=== PATIENT | male | born 1965 | race Caucasian/White ===

== ENCOUNTER 2017-01-22 11:12 | Inpatient (IN) ==
--- NOTE | 2017-01-21 21:30 | Discharge Summary ---
<ShamarobertaMarnie - Last Filed: 01/21/17 21:28> Date of Encounter: 01/21/17 - Discharge Diagnosis (1) Arthritis of knee, left Priority: Primary Status: Acute (2) COPD (chronic obstructive pulmonary disease) Priority: Secondary Status: Chronic Qualifiers: COPD type: unspecified COPD Qualified Code(s): J44.9 - Chronic obstructive pulmonary disease, unspecified (3) YESI (obstructive sleep apnea) Priority: Secondary Status: Chronic (4) DMII (diabetes mellitus, type 2) Priority: Secondary Status: Chronic Qualifiers: Diabetes mellitus complication status: with unspecified complications Diabetes mellitus exterminator helper insulin use: unspecified long-term insulin use status Qualified Code(s): E11.8 - Type 2 diabetes mellitus with unspecified complications (5) Obesity Priority: Secondary Status: Chronic Qualifiers: Obesity type: unspecified obesity type Obesity severity: morbid Qualified Code(s): E66.01 - Morbid (severe) obesity due to excess calories - Discharge Medications Prescriptions: OxyCODONE Immed Rel [Roxicodone 5 MG] 5 - 10 mg PO Q6HR PRN #40 tablet PRN Reason: Pain Home Medications: Losartan/Hydrochlorothiazide [Hyzaar 50-12.5 Tablet] 1 each PO DAILY 08/02/15 [ History] Pravastatin Sodium [Pravachol] 20 mg PO DAILY 08/02/15 [History] OxyCODONE Immed Rel [Roxicodone 5 MG] 5 - 10 mg PO Q6HR PRN #40 tablet 01/21/17 [Rx] Albuterol Sulfate [Ventolin Hfa] 2 puff IH Q4H PRN 01/22/17 [History] Ammonium Lactate [Lac-Hydrin Five] 1 appl TP BID PRN 01/22/17 [History] Aspirin [Lo-Dose Aspirin EC] 81 mg PO DAILY 01/22/17 [History] Budesonide/Formoterol 160/4.5 [Symbicort 160/4.5] 2 puff IH BID 01/22/17 [ History] Metformin HCl [Metformin HCl ER] 500 mg PO BID 01/22/17 [History] Testosterone Cypionate [Depo-Testosterone] 200 mg IM Q14D 01/22/17 [History] Allergies/Adverse Reactions: Allergies morphine Adverse Reaction (Verified 01/22/17 13:44) Hallucinating Primary care physician: Nikky Melgoza - Patient Status Disposition: Home, Self-Care Condition: Good - Discharge Instructions Follow Up With: Gary Ball MD [Primary Care Provider] - - Hospital Course Hospital course: Mr. Fischer is a 51 year old male - Time Spent with Patient Total time spent providing and/or coordinating discharge services: <KovacsLars - Last Filed: 01/23/17 06:37> Date of Encounter: 01/23/17 Time of Encounter: 06:36 - Discharge Diagnosis (1) Arthritis of knee, left Priority: Primary Status: Acute (2) COPD (chronic obstructive pulmonary disease) Priority: Secondary Status: Chronic Qualifiers: COPD type: unspecified COPD Qualified Code(s): J44.9 - Chronic obstructive pulmonary disease, unspecified (3) YESI (obstructive sleep apnea) Priority: Secondary Status: Chronic (4) DMII (diabetes mellitus, type 2) Priority: Secondary Status: Chronic Qualifiers: Diabetes mellitus complication status: with unspecified complications Diabetes mellitus long-term insulin use: unspecified long-term insulin use status Qualified Code(s): E11.8 - Type 2 diabetes mellitus with unspecified complications (5) Obesity Priority: Secondary Status: Chronic Qualifiers: Obesity type: unspecified obesity type Obesity severity: morbid Qualified Code(s): E66.01 - Morbid (severe) obesity due to excess calories Labs on day of discharge: Labs from last 24 hours 01/22/17 11:29 POC Glucose 113 H Primary care physician: Nikky Melgoza - Patient Status Functional capacity at discharge: uses cane/walker Overall status at discharge: patient is progressing back to baseline - Hospital Course Hospital course: Mr. Fischer is a 51 year old male The patient had an uneventful postoperative course. They received antibiotics and physical therapy and were discharged in stable condition. There will follow -up in the office in 2 weeks. Aspirin DVT prophylaxis - Time Spent with Patient Total time spent providing and/or coordinating discharge services:
--- NOTE | 2017-01-22 11:32 | History & Physical Report ---
Date of Encounter: 01/22/17 Time of Encounter: 11:31 24 Hour HP Update - Instructions Instructions: If the History and Physical is less than 30 days old and was completed prior to A.M. admission and or procedure and has NOT been updated on calendar day of procedure please complete this update prior to performing procedure. - Update Patient reports changes in Medical Condition: No Changes in examination, assessment, or condition: No Changes in Medication: No Preop tests/diagnostics Reviewed: Yes Surgery Remains Indicated: Yes Consent for Planned Operative Procedure(s) Verified: Yes - Pre-Operative Checklist Preoperative Checklist Indicated: No Prophylactic Antibiotic Ordered: Yes Is VTE Prophylaxis Indicated?: Yes
[2017-01-22] MEDS ORDERED: Albuterol 2.5 MG/3 ML NEBULIZER IH ONE (11:51)
[2017-01-22] MEDS ORDERED: CeFAZolin Pre 3,000 MG/100 ML 3,000 MG/100 ML BAG IVPB ONE (11:51)
[2017-01-22] MEDS ORDERED: Ringers Solution, Lactated 1,000 ML IVC SCH ×2 (12:00→21:05)
--- NOTE | 2017-01-22 12:30 | Anesthesia Evaluation PreOp ---
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: Other (legally blind right eye (sees shadows)) Other Medical History: Diabetes Type II, Other (obesity BMI=41.4, RA) Anesthesia History: Past Anesthesia, Problems (PONV) Alcohol Use: rarely Drug use: none Medications and Allergies Alfuzosin HCl [Uroxatral] 10 mg PO DAILY 08/02/15 [History] Losartan/Hydrochlorothiazide [Hyzaar 50-12.5 Tablet] 1 each PO DAILY 08/02/15 [ History] Meloxicam [Mobic] 7.5 mg PO DAILY 08/02/15 [History] Metformin HCl [Glucophage] 2,000 mg PO DAILY 08/02/15 [History] Pravastatin Sodium [Pravachol] 20 mg PO DAILY 08/02/15 [History] Aspirin Enteric Coated [Aspirin EC] 325 mg PO DAILY #21 tablet. 01/21/17 [Rx] OxyCODONE Immed Rel [Roxicodone 5 MG] 5 - 10 mg PO Q6HR PRN #40 tablet 01/21/17 [Rx] Allergies morphine Adverse Reaction (Unverified 07/28/15 14:51) Hallucinating - Meds/Allergy Pre-op Review Medications Reviewed: Yes Allergies Reviewed: Yes Beta Blockers on Current Med List: No Anesthesia Results - Labs Laboratory Tests 01/09/17 01/09/17 01/09/17 13:23 13:23 13:23 WBC 8.5 Hgb 16.4 Hct 48.9 Plt Count 200 PT 10.7 INR 1.0 APTT 30.5 Sodium 140 Potassium 4.2 BUN 15 Creatinine 0.74 - Imaging EKG: report reviewed (11/15/2016 SR, moderate IV conduction delay) Additional studies: 04/29/2013 Stress Echo Resting Echocardiogram Impressions: * LVEF 60% * Normal left ventricular size and systolic function. Treadmill Stress Echocardiogram Impressions: * Appropriate increase in LVEF with stress. * No segmental wall motion changes that would suggest ischemia. * Exercise ECG was negative for ischemia. * The exercise capacity was poor (3 minutes). * Patient had no chest pain with stress. * Normal hemodynamic response to stress. * No arrhythmias noted with stress. Anesthesia Exam O2 Sat Height 1.83 m Height 1.83 m Height 1.83 m Weight 138.346 kg Weight 138.346 kg Weight 138.346 kg O2 Sat by Pulse Oximetry 95 Vital Signs Temp Pulse Resp BP Pulse Ox 97.9 F 69 18 155/100 95 01/22/17 11:33 01/22/17 11:33 01/22/17 11:33 01/22/17 11:33 01/22/17 11:33 Blood Glucose* 113 Height: 6' Weight: 305 lbs NPO (# of Hours): 8 Pain Scale: 0 Pain Scale Used: Numeric (1 - 10) - HEENT Pupil (Motor): EOMI Mallampati: III Teeth: Normal (chipped upper front tooth) Oral Opening: Greater than 3 - TRIM DIE MAKER LOC: Oriented TRIM DIE MAKER Motor: Normal RUE, Normal LUE, Normal RLE, Normal LLE, Normal Face TRIM DIE MAKER Sensory: Normal: RUE, LUE, RLE, LLE, Face - Cardiac Rhythm: Regular Murmur: None - Pulmonary Breath Sounds: bilateral Clear Respiratory Effort: Symmetrical Anesthesia Assess/Plan ASA Score: 3 Modified Sol Scale for Level of Consciousness: Cooperative, oriented, and tranquil Anesthetic Plan: General, Regional Monitoring Plan: Standard Monitors Recovery Plan: PACU
[2017-01-22] MEDS ORDERED: Ketorolac 30 MG/ML VIAL ONE (15:25)
[2017-01-22] MEDS ORDERED: Lidocaine -MPF 2% 2 ML VIAL ONE (15:25)
[2017-01-22] MEDS ORDERED: *HR* Midazolam HCl 2 MG/2 ML VIAL ONE ×2 (15:25→15:29)
[2017-01-22] MEDS ORDERED: *HR* Propofol 200 MG/20 ML VIAL IVP ONE (15:25)
[2017-01-22] MEDS ORDERED: Ondansetron 4 MG/2 ML VIAL ONE (15:25)
[2017-01-22] MEDS ORDERED: *HR* FentaNYL (PF) 100 MCG/2 ML VIAL ONE ×2 (15:25→15:29)
[2017-01-22] MEDS ORDERED: ROPIVACAINE HCL/PF 0.5% 30 ML VIAL ONE (16:28)
--- NOTE | 2017-01-22 17:23 | Anesthesia Procedures ---
Date of Encounter: 01/22/17 Time of Encounter: 16:40 Procedures: Anesthesia - Nerve Block Procedure Date: 01/22/17 Time: 16:40 Allergies/Adv Reactions: morphine Pre-op Diagnosis: Left Knee Arthritis Surgical Procedure: Left Total Knee Arthroplasty Checklist: Correct Patient Identifier, Correct procedure, History checked Correct side: Left (ft) Blood Thinner: No Monitor Applied: EKG, BP, Pulse Oximetry Supplemental Oxygen via Nasal Cannula (L/min): 2 Sedation: Versed (mg): 2 Sedation: Fentanyl (mcg): 100 Indication: Post Op Analgesia Pre-op Neuro Deficits: No Block Type: Femoral Catheter placed: No Sterile Technique: Yes Ultrasound used: Yes Anatomy identified: Yes Visual spread of Local: Yes Neuro Stimulation: Yes Nerve Stimulator Range: >0.4 - 0.6 mA Blood on Needle Aspiration: No Smooth Injection of Local: Yes Pain with Injection of Local: No Prep: Chlorhexadine Needle: 22 x 50 mm Stimuplex Local: Ropivacaine (0.5% 30 ml ) Volume (cc): 30 Number of Attempts: 1 Complications: None/effective block Vitals: vss
[2017-01-22] MEDS ORDERED: Albuterol 2.5 MG/3 ML NEBULIZER IH PRN (17:27)
[2017-01-22] MEDS ORDERED: *HR* Promethazine 25 MG/ML VIAL IVP PRN (17:27)
[2017-01-22] MEDS ORDERED: Propofol 500 MG/50 ML INFUS..BTL ONE (17:31)
[2017-01-22] MEDS ORDERED: Dexamethasone 4 MG/ML VIAL ONE (17:52)
--- NOTE | 2017-01-22 17:58 | Orthopedic Operative Note ---
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 Operative procedure: The patient was brought to the operating room and placed on the operating room table. After general anesthesia was administered the operative knee was examined. Findings were noted in the exam under anesthesia. The operative extremity was prepped and draped in sterile surgical fashion. The patient received IV antibiotics prior to skin incision. A standard midline incision was made centered over the patella. The incision was made through the skin and subcutaneous tissue. A medial parapatellar tendon approach was performed. Care was taken to preserve tissue along the medial aspect of the patella. And to protect the patella tendon. The deep MCL was released off the medial tibia. The infra patella fat pad was excised. Knee was brought into flexion. Patient noted to have grade 43 changes medial compartment and patellofemoral joint. The entry hole was made for the intramedullary femoral guide. The guide was seated in 6 degrees of valgus. Anterior cut was made followed by the distal cut. The PCL the medial and the lateral menisci were excised. The Altamirano cyst was palpated and a hemostat was used to open up the aperture and evacuate the cyst. The tibia was subluxed forward. The entry hole was made for the intramedullary tibial guide. Guide was seated to resect 2 mm off the more abnormal side. The knee was brought into flexion the distal femur was sized to a 2 a 70 The femur was first reamed to a a 22 x 120 The femoral guide was seated, the anterior cut was made followed by the posterior condylar cut, followed by the chamfer cuts. The finishing guide was seated the box cut was made. Trial had good fit and fixation The tibia was sized to a an 79 The tibia was first reamed 18 x 80 Trial reduction revealed full extension no varus valgus instability with the appropriate or teen insert. The patella was everted and cut was made at the level of the insertion of the quadriceps and patella tendon. The patella was sized to a 40 the guide was seated and the lug holes are drilled. Trial reduction revealed excellent patella tracking. All trial components were removed all bony surfaces were irrigated. Components were assembled on the back table. The femur was cemented first followed by the tibia. The 14 Melissa was seated and secured. The knee was brought into full extension. The patella was cemented and held in place with the patellar holding clamp. After the cement had hardened, the knee sat for 2 minutes with a Betadine saline solution. The knee was then irrigated out with 2 L of pulse irrigation. The extensor mechanism was closed with #2 FiberWire suture and #2 PDS suture. The subcutaneous tissue was then irrigated and closed deep with #1 PDS suture superficially with 0 PDS suture and skin was closed with skin lonnie The patient was then placed in a sterile dressing and a postoperative brace extubated and transferred to recovery room in stable condition. Anesthesia: LESLEY Surgeon: Lars Kovacs Dbas: Marnie Esqueda Condition: stable Disposition: PACU
[2017-01-22] MEDS ORDERED: *HR* Enoxaparin 30 MG/0.3 ML SYRINGE SQ SCH (18:00)
[2017-01-22] MEDS: *HR* HYDROmorphone (PF) 1 MG/ML SYRINGE IVP PRN ×2 (18:35→18:50)
--- NOTE | 2017-01-22 19:15 | Anesthesia Evaluation Post Op ---
Date of Encounter: 01/22/17 Time of Encounter: 19:20 - Vital Signs Vital Signs: Vital Signs/O2 Sat/Glucose, Most Current Temp Pulse Resp BP Pulse Ox 01/22/17 19:05 80 16 138/87 96 01/22/17 18:55 97.3 F L 86 16 151/90 98 01/22/17 18:45 82 16 147/95 97 01/22/17 18:35 80 16 147/95 95 01/22/17 18:25 97.8 F 76 20 125/80 95 01/22/17 16:14 66 16 158/89 98 - Lungs Lungs: Clear Ascult./Percussion - Cardiovascular Regular Rate - Mental Status Mental Status: Alert & Oriented, Answers Appropriately - Pain Pain Scale: 2 - Nausea Vomiting Nausea Vomiting: Not Present - Hydration Hydration: Ice chips - Discharge PostOp Status: Transfer Patient to floor
[2017-01-22 20:07] LABS: Hemoglobin 16.2 g/dL (12.9-16.9)
[2017-01-22] MEDS ORDERED: *HR* HYDROmorphone (PF) 1 MG/ML SYRINGE IVP PRN (21:05)
[2017-01-22] MEDS ORDERED: ceFAZolin 3,000 MG in D5% in Water 100 ML IVPB SCH (21:05)
[2017-01-22] MEDS ORDERED: *HR* OxyCODONE Immed Rel 5 MG TABLET PO PRN (21:05)
[2017-01-22] MEDS ORDERED: Ammonium Lactate 30 APPL/225 GM BOTTLE TP PRN (21:05)
[2017-01-22] MEDS ORDERED: Temazepam 15 MG CAPSULE PO PRN (21:05)
[2017-01-22] MEDS ORDERED: Insulin LISPRO 300 UNITS/3 ML VIAL SQ SCH ×2 (21:05)
[2017-01-22] MEDS ORDERED: Ondansetron 4 MG/2 ML VIAL IVP PRN (21:05)
[2017-01-22] MEDS ORDERED: D5% in Water 1,000 ML IVC PRN (21:05)
[2017-01-22] MEDS ORDERED: Sennosides 8.6 MG TABLET PO PRN (21:05)
[2017-01-22] MEDS ORDERED: MOM Conc 10 ML UD.LIQ PO PRN (21:05)
[2017-01-22] MEDS ORDERED: Naloxone 0.4 MG/ML INJ IVP PRN (21:05)
[2017-01-22] MEDS ORDERED: Dextrose Gel 15 GM PO PRN ×2 (21:05)
[2017-01-22] MEDS ORDERED: *HR* Dextrose 50 % in Water (Syg) 50 ML SYRINGE IVP PRN (21:05)
[2017-01-22] MEDS ORDERED: DEPO TESTOSTERONE IM SCH (21:05)
[2017-01-22] MEDS: Insulin LISPRO 300 UNITS/3 ML VIAL SQ SCH (22:09)
[2017-01-22] MEDS: *HR* OxyCODONE Immed Rel 5 MG TABLET PO PRN (22:29)
[2017-01-22] MEDS: ceFAZolin 3,000 MG in D5% in Water 100 ML IVPB SCH (22:30)
[2017-01-22] MEDS: *HR* Metformin 500 MG TABLET PO SCH (22:39)
[2017-01-23] MEDS: *HR* OxyCODONE Immed Rel 5 MG TABLET PO PRN ×3 (04:59→14:18)
[2017-01-23] MEDS ORDERED: *HR* Enoxaparin 30 MG/0.3 ML SYRINGE SQ SCH (06:00)
--- NOTE | 2017-01-23 06:37 | Orthopedics Progress Note ---
Date of Encounter: 01/23/17 Time of Encounter: 06:37 - Assessment and Plan (1) Arthritis of knee, left Current Visit: Yes Status: Acute (2) COPD (chronic obstructive pulmonary disease) Current Visit: Yes Status: Chronic Qualifiers: COPD type: unspecified COPD Qualified Code(s): J44.9 - Chronic obstructive pulmonary disease, unspecified (3) YESI (obstructive sleep apnea) Current Visit: Yes Status: Chronic (4) DMII (diabetes mellitus, type 2) Current Visit: Yes Status: Chronic Qualifiers: Diabetes mellitus complication status: with unspecified complications Diabetes mellitus buttermaker helper insulin use: unspecified buttermaker helper insulin use status Qualified Code(s): E11.8 - Type 2 diabetes mellitus with unspecified complications (5) Obesity Current Visit: Yes Status: Chronic Qualifiers: Obesity type: unspecified obesity type Obesity severity: morbid Qualified Code(s): E66.01 - Morbid (severe) obesity due to excess calories Subjective Interval history: Patient was seen this morning doing well without complaints. Afebrile vital signs stable. Operative extremity: Neurovascularly intact Dressing clean dry and intact Calves nontender Assessment and plan: Continue with postoperative care Discharged today Objective Vital signs: Vital Signs Temp Pulse Resp BP Pulse Ox 01/23/17 04:47 18 98 01/23/17 04:31 98.1 F 85 16 121/79 99 01/22/17 23:51 98.4 F 83 14 130/85 95 01/22/17 23:39 18 95 01/22/17 23:22 98.0 F 90 18 130/83 96 01/22/17 21:30 97.9 F 83 18 121/92 98 01/22/17 20:50 97.9 F 80 18 143/76 97 01/22/17 20:20 97.9 F 82 18 145/67 99 01/22/17 19:25 98.0 F 71 16 133/85 96 01/22/17 19:15 98.0 F 88 16 154/92 96 01/22/17 19:05 80 16 138/87 96 01/22/17 18:55 97.3 F L 86 16 151/90 98 01/22/17 18:45 82 16 147/95 97 01/22/17 18:35 80 16 147/95 95 01/22/17 18:25 97.8 F 76 20 125/80 95 01/22/17 16:14 66 16 158/89 98 01/22/17 11:33 97.9 F 69 18 155/100 95 Intake and Output 01/22/17 01/22/17 01/23/17 15:59 23:59 07:59 Intake Total 0 / 0 200 / 200 Output Total 300 / 300 500 / 500 Balance -300 / -300 -300 / -300 Intake: IV Fluids 100 / 100 Ancef 3,000 MG In 100 / 100 Dextrose 5% 100 ML @ 200 mls/hr IVPB Q8H HEBER Rx#: [id number] Oral 0 / 0 100 / 100 Output: Urine 0 / 0 500 / 500 Estimated Blood Loss 300 / 300 Other: # Voids 1 Weight 138.346 kg 139.3 kg Blood Glucose* 113 149 Patient Weight 01/23/17 23:59 Weight 139.3 kg - Labs CBC & BMP: 01/22/17 18:46 Labs: Abnormal lab results POC Glucose 149 (58-89) H 01/22/17 22:02 - VTE Documentation of Mechanical Device: Venous foot pump, device Consult Discharge Plan - Plan Referrals: Gary Ball MD [Primary Care Provider] - Prescriptions: OxyCODONE Immed Rel [Roxicodone 5 MG] 5 - 10 mg PO Q6HR PRN #40 tablet PRN Reason: Pain
[2017-01-23 06:52] LABS: BUN/Creatinine Ratio 19 (6-26); Blood Urea Nitrogen 14 mg/dL (8-26); Calcium 8.8 mg/dL (8.6-10.8); Carbon Dioxide 22 mEq/L (19-29); Chloride 104 mEq/L (98-109); Glucose 130 mg/dL (70-99); Osmolality,Calculated 284 (280-300); Potassium 4.2 mEq/L (3.5-4.5); Sodium 136 mEq/L (136-145); eGFR For African Americans > 60 (> 60); eGFR For Non-African Americans > 60 (> 60)
[2017-01-23] MEDS: Insulin LISPRO 300 UNITS/3 ML VIAL SQ SCH ×2 (08:24→11:52)
[2017-01-23] MEDS: *HR* Metformin 500 MG TABLET PO SCH (08:26)
[2017-01-23] MEDS ORDERED: ceFAZolin 3,000 MG in D5% in Water 100 ML IVPB SCH (08:30)
[2017-01-23] MEDS: ceFAZolin 3,000 MG in D5% in Water 100 ML IVPB SCH (08:37)
[2017-01-23] MEDS ORDERED: Aspirin Enteric Coated 81 MG Tablet PO SCH (09:00)
[2017-01-23] MEDS ORDERED: Losartan/HCTZ 50-12.5 TABLET PO SCH (09:00)
[2017-01-23] MEDS ORDERED: Budesonide/Formoterol 160/4.5 MDI IH SCH (10:00)
[2017-01-23 15:30] VITALS: BP 130/87
== END 2017-01-23 16:55 | disposition home or self-care (01) | DRG 470 ==
LOC: SAMDAY 11:12 → 3NENU 11:40 → SAMDAY 01-23 16:55
PROVIDERS: ADMIT Orthopaedic Surgery; ATTEND Orthopaedic Surgery